=== PATIENT | female | born 1995 | race Caucasian/White ===

== ENCOUNTER 2022-11-18 12:31 | Emergency (ER) | payer OTHER ==
[~2022-11-18] VITALS: Ht 160 cm; Wt 92.7 kg
[2022-11-18 12:41] VITALS: TEMP 98.4
[2022-11-18 15:24] LABS: COLLECTION METHOD CLEAN CATCH
[2022-11-18 15:40] LABS: URINE APPEARANCE Clear (CLEAR/HAZY); URINE BACTERIA Moderate /hpf (NONE SEEN); URINE COLOR Yellow (YELLOW); URINE GLUCOSE Negative (NEGATIVE); URINE KETONE Negative (NEGATIVE); URINE NITRATE Negative (NEGATIVE); URINE PROTEIN(semi-quant) Negative (NEGATIVE); URINE UROBILINOGEN 0.2 E.U/dL (0.2-1.0)
[2022-11-18 15:41] LABS: URINE BLOOD 1+ (NEGATIVE)
[2022-11-18 17:16] VITALS: BP 119/79; PULSE 81
== END 2022-11-18 17:16 | disposition home or self-care (01) ==
LOC: COL.ER 12:31
PROVIDERS: Nurse Practitioner
DX: O20.0 Threatened abortion (principal); Z28.311 Partially vaccinated for COVID-19; Z3A.09 9 weeks gestation of pregnancy

== ENCOUNTER 2024-07-02 08:13 | Emergency (ER) | payer OTHER ==
[~2024-07-02] VITALS: Ht 12.7 cm; Wt 93.2 kg
[2024-07-02 08:41] VITALS: TEMP 98.7
[2024-07-02] MEDS ORDERED: NS 1,000 ML IV ONE (09:15)
[2024-07-02 09:17] LABS: COLLECTION METHOD CLEAN CATCH
[2024-07-02 09:30] LABS: URINE APPEARANCE CLEAR (CLEAR/HAZY); URINE BLOOD NEGATIVE (NEGATIVE); URINE COLOR YELLOW (YELLOW); URINE GLUCOSE NEGATIVE (NEGATIVE); URINE KETONE NEGATIVE (NEGATIVE); URINE NITRATE NEGATIVE (NEGATIVE); URINE PROTEIN(semi-quant) NEGATIVE (NEGATIVE); URINE UROBILINOGEN 0.2 E.U/dL (0.2-1.0)
[2024-07-02] MEDS ORDERED: Ibuprofen 400 MG TAB PO ONE (09:30)
[2024-07-02 10:03] LABS: BASO % 0.3 % (0.0-2.0); EOS # 0.2 K/mm3 (0.0-0.7); EOS % 2.1 % (0.0-4.0); GRAN # 6.1 K/mm3 (1.4-6.5); GRAN % 66.8 % (42.2-75.2); HEMATOCRIT 38.6 % (37.0-47.0); HEMOGLOBIN 12.8 g/dl (12.5-16.0); LYMPH # 2.2 K/mm3 (1.2-3.4); LYMPH % 24.5 % (20.0-51.0); MEAN CELL VOLUME 81 fl (80.0-100.0); MEAN CORPUSCULAR HEMOGLOBIN 27 pg (27-31); MEAN CORPUSCULAR HGB CONC 33 g/dl (33.0-37.0); MEAN PLATELET VOLUME 9.7 fl (7.4-10.4); MONO # 0.6 K/mm3 (0.1-0.6); MONO % 6.1 % (1.7-9.3); PLATELET COUNT 249 K/mm3 (130-400); RED BLOOD COUNT 4.78 M/mm3 (4.10-5.30); REDCELL DISTRIBUTION WIDTH-CV 15.1 % (11.5-14.5)
[2024-07-02] MEDS ORDERED: Iohexol 300 - 100 ML VIAL IV ONE (10:09)
[2024-07-02] MEDS ORDERED: NS 100 ML IV SCH (10:09)
[2024-07-02 10:29] LABS: ALBUMIN 3.6 g/dL (3.5-5.0); BILIRUBIN,TOTAL 0.3 mg/dL (0.2-1.2); CALCIUM 9.4 mg/dL (8.4-10.2); CREATININE, serum 0.74 mg/dL (0.57-1.11); POTASSIUM 4.1 mEq/L (3.5-4.5); TOTAL PROTEIN 7.2 g/dl (6.2-8.1)
[2024-07-02 11:22] VITALS: BP 112/64; PULSE 60
== END 2024-07-02 11:16 | disposition home or self-care (01) ==
LOC: COL.ER 08:13
PROVIDERS: Personal Emergency Response Attendant
DX: R10.30 Lower abdominal pain, unspecified (principal)
CPT/HCPCS: J7030; Q9967